=== PATIENT | female | born 2000 | race Caucasian/White ===

== ENCOUNTER 2019-11-30 21:12 | Emergency (ER) | payer OTHER ==
[2019-12-01 12:55] LABS: SARS-CoV-2 MS2 Positive; SARS-CoV-2 N Gene Negative; SARS-CoV-2 S Gene Negative; SARS-CoV-2 orf1ab Negative
== END 2019-11-30 21:39 | disposition home or self-care (01) ==
LOC: ERS 21:12
DX: Z20.828 Contact with and (suspected) exposure to other viral communicable diseases (principal)
CPT/HCPCS: 87635; 99283; U0003

== ENCOUNTER 2020-07-06 16:29 | Emergency (ER) | payer OTHER ==
[2020-07-07 02:28] LABS: SARS-CoV-2 PCR by NAA Not Detected (NotDetected)
== END 2020-07-06 16:50 | disposition home or self-care (01) ==
LOC: ERS 16:29
DX: R05 Cough (principal); R09.81 Nasal congestion; R53.83 Other fatigue; Z20.822 Contact with and (suspected) exposure to COVID-19
CPT/HCPCS: 87635; 99283; U0003; U0005